=== PATIENT | female | born 1925 | race Caucasian/White ===

== ENCOUNTER 2016-06-23 10:44 | Emergency (ER) | payer OTHER, MEDICARE ==
[~2016-06-23] VITALS: Ht 167.6 cm; Wt 56.4 kg
[2016-06-23 10:55] VITALS: TEMP 36.9; Ht 167.6 cm; Wt 56.4 kg
[2016-06-23] MEDS ORDERED: HALOPERIDOL LACTATE 5 MG/ML 1 ML VIAL IV STA (11:33)
[2016-06-23] MEDS ORDERED: SODIUM CHLORIDE 0.9% 500ML 500 ML IV STA (11:33)
[2016-06-23] MEDS ORDERED: LORAZEPAM 2 MG/ML 1 ML VIAL IV STA (11:33)
--- NOTE | 2016-06-23 11:39 | EMERGENCY ROOM VISIT NOTE ---
History Report prepared by Ahmet: Katina Suárez Under the Supervision of: Dr. Jeremiah Reyez M.D. First contact with patient: 11:14 Chief Complaint: MENTAL HEALTH EVALUATION Stated Complaint: MEDICAL CLEARANCE History of Present Illness The patient is an 89 year old female who presents to the Emergency Room with complaints of a change in mental status that occurred prior to arrival. Per the patient's son, the patient was placed at [facility] this week and had a change in mental status. The patient has no history of mental health problems in the past. Per staff, the patient refused the initial exam from Dr. Ji at [facility]. Staff notes that the patent refused blood work blood pressure readings. The staff states that the communication was not relayed well to the patient. They state that the patient has not seen a doctor in over forty years. The patient's son states that the patient has a history of a double mastectomy. The patient states that she is unsure why she is here today and states that she would like this to move as quickly as possible. She states that her is very sick and she does not like being away from him for too long. Source of History: patient, family (son), other (staff) Onset: prior to arrival Position: other (global) Quality: other (change in mental status) Review of Systems See HPI for pertinent positives & negatives. A total of 10 systems reviewed and were otherwise negative. Past Medical & Surgical Surgical Problems: (1) H/O total mastectomy Family History Noncontributory secondary to age Social History Smoking Status: Never Smoker Marital Status: Housing Status: [facility] Occupation Status: retired Current/Historical Medications Scheduled Sulfa/Trimethoprim (Bactrim Ds 800MG/160MG), 1 TAB PO BID Allergies Uncoded Allergies: COUGH SYRUP (Allergy, Unknown, FAINTING, 09/16/13) Physical Exam Vital Signs Date Time Temp Pulse Resp B/P Pulse Ox O2 Delivery O2 Flow Rate FiO2 06/23/16 15:38 58 18 144/68 96 06/23/16 15:17 54 18 140/68 94 Room Air 06/23/16 14:41 129/54 06/23/16 13:12 125/73 06/23/16 10:55 36.9 56 18 117/73 94 Room Air Physical Exam GENERAL: Patient appears slightly confused. HEAD: Normocephalic atraumatic EYES: Ocular movements intact pupils equal and react to light OROPHARYNX mucous membranes are moist no exudates present no erythema or edema present NECK: Supple no nuchal rigidity CHEST: Good equal expansion LUNGS: Clear and equal to auscultation CARDIAC: Normal S1 and S2 ABDOMEN: Soft nontender no guarding BACK: No CVA tenderness EXTREMITIES: No pain upon palpation normal muscle strength in all groups no clubbing cyanosis or edema NEURO: Patient is following commands is answering questions appropriately. Alert and oriented x3 Cranial Nerves 2-12 grossly intact Medical Decision & Procedures ER Provider Diagnostic Interpretation: Radiology results as stated below per my review and radiologist interpretation: CT HEAD WITHOUT CONTRAST (CT) CLINICAL HISTORY: Acute change in mental status COMPARISON STUDY: No previous studies for comparison. TECHNIQUE: Axial CT of the brain is performed from the vertex to the skull base. IV contrast was not administered for this examination. CT DOSE: 638.56 mGycm FINDINGS: No intra or extra-axial mass lesions are visualized. There is no CT evidence of acute cortical infarction. There is no evidence of midline shift. There is no acute hemorrhage. No calvarial fractures are visualized. There are patchy white matter hypodensities likely on a small vessel basis. There are tiny lacunar infarcts within the basal ganglia bilaterally. There is no evidence of pathologic ventricular dilatation. There is no evidence of acute sinusitis. There is ossification of the falx. IMPRESSION: No acute intracranial findings Electronically signed by: Rigoberto Coreas M.D. 06/23/2016 12:17 PM Dictated Date/Time: 06/23/2016 12:16 PM CHEST ONE VIEW PORTABLE CLINICAL HISTORY: Acute change in mental status COMPARISON STUDY: 08/04/2015 FINDINGS: The heart is mildly enlarged. There are bilateral calcified breast implants. There is mild interstitial edema. There is no lobar consolidation. There are no pleural effusions. Surgical clips project over the right axillary region and both breasts. There is gaseous distention of the visualized bowel.[ IMPRESSION: Interval development of mild interstitial edema. No evidence of lobar consolidation Electronically signed by: Rigoberto Coreas M.D. 06/23/2016 11:57 AM Dictated Date/Time: 06/23/2016 11:56 AM Laboratory Results 06/23/16 12:00 Red Blood Count 4.52, Mean Corpuscular Volume 90.3, Mean Corpuscular Hemoglobin 30.1, Mean Corpuscular Hemoglobin Concent 33.3, Mean Platelet Volume 10.9, Neutrophils (%) (Auto) 73.2, Lymphocytes (%) (Auto) 17.3, Monocytes (%) (Auto) 7.2, Eosinophils (%) (Auto) 1.6, Basophils (%) (Auto) 0.4, Neutrophils # (Auto) 5.19, Lymphocytes # (Auto) 1.23, Monocytes # (Auto) 0.51, Eosinophils # (Auto) 0.11, Basophils # (Auto) 0.03 06/23/16 12:00 Test 06/23/16 12:00 06/23/16 12:04 06/23/16 13:30 White Blood Count 7.09 K/uL (4.8-10.8) Red Blood Count 4.52 M/uL (4.2-5.4) Hemoglobin 13.6 g/dL (12.0-16.0) Hematocrit 40.8 % (37-47) Mean Corpuscular Volume 90.3 fL (80-100) Mean Corpuscular Hemoglobin 30.1 pg (25-34) Mean Corpuscular Hemoglobin Concent 33.3 g/dl (32-36) Platelet Count 220 K/uL (130-400) Mean Platelet Volume 10.9 fL (7.4-10.4) Neutrophils (%) (Auto) 73.2 % Lymphocytes (%) (Auto) 17.3 % Monocytes (%) (Auto) 7.2 % Eosinophils (%) (Auto) 1.6 % Basophils (%) (Auto) 0.4 % Neutrophils # (Auto) 5.19 K/uL (1.4-6.5) Lymphocytes # (Auto) 1.23 K/uL (1.2-3.4) Monocytes # (Auto) 0.51 K/uL (0.11-0.59) Eosinophils # (Auto) 0.11 K/uL (0-0.5) Basophils # (Auto) 0.03 K/uL (0-0.2) RDW Standard Deviation 47.0 fL (36.4-46.3) RDW Coefficient of Variation 14.1 % (11.5-14.5) Immature Granulocyte % (Auto) 0.3 % Immature Granulocyte # (Auto) 0.02 K/uL (0.00-0.02) Anion Gap 8.0 mmol/L (3-11) Est Creatinine Clear Calc Drug Dose 34.0 ml/min Estimated GFR () 57.8 Estimated GFR (Non- 49.9 BUN/Creatinine Ratio 20.9 (10-20) Calcium Level 9.4 mg/dl (8.5-10.1) Total Bilirubin 0.6 mg/dl (0.2-1) Direct Bilirubin 0.1 mg/dl (0-0.2) Aspartate Amino Transf (AST/SGOT) 29 U/L (15-37) Alanine Aminotransferase (ALT/SGPT) 30 U/L (12-78) Alkaline Phosphatase 94 U/L (45-117) Total Creatine Kinase 272 U/L (26-192) Creatine Kinase MB 9.7 ng/ml (0.5-3.6) Creatine Kinase MB Ratio 3.6 (0-3.0) Troponin I < 0.015 ng/ml (0-0.045) Total Protein 7.9 gm/dl (6.4-8.2) Albumin 3.8 gm/dl (3.4-5.0) Thyroid Stimulating Hormone (TSH) 21.900 uIu/ml (0.300-4.500) Bedside Glucose 77 mg/dl (70-90) Urine Color YELLOW Urine Appearance CLOUDY (CLEAR) Urine pH 6.0 (4.5-7.5) Urine Specific Hilger 1.017 (1.000-1.030) Urine Protein NEG (NEG) Urine Glucose (UA) NEG (NEG) Urine Ketones TRACE (NEG) Urine Occult Blood 1+ (NEG) Urine Nitrite POS (NEG) Urine Bilirubin NEG (NEG) Urine Urobilinogen NEG (NEG) Urine Leukocyte Esterase MODERATE (NEG) Urine WBC (Auto) 10-30 /hpf (0-5) Urine RBC (Auto) 0-4 /hpf (0-4) Urine Hyaline Casts (Auto) 1-5 /lpf (0-5) Urine Epithelial Cells (Auto) 5-10 /lpf (0-5) Urine Bacteria (Auto) 4+ (NEG) Labs reviewed by ED physician. Medications Administered Medications (Trade) Dose Ordered Sig/Mary Ann Route Start Time Stop Time Status Last Admin Dose Admin Sodium Chloride (Nss 500ml) 500 ml @ 999 mls/hr Q31M STAT IV 06/23/16 11:33 06/23/16 12:03 DC 06/23/16 11:33 999 MLS/HR Ceftriaxone Sodium (Rocephin Inj) 1 gm NOW STAT IV 06/23/16 14:16 06/23/16 14:17 DC 06/23/16 14:42 1 GM ECG Indication: altered mental status Rate (beats per minute): 58 Rhythm: sinus bradycardia Findings: no acute ischemic change, no ectopy ED Course 1120: Past medical records reviewed. The patient was evaluated in room A8. A complete history and physical examination was performed. 1133: Ordered Sodium Chloride 500 ml @ 999 mls/hr IV, Ativan Inj 1 mg IV, Haldol Inj 5 mg IV. 1308: I reevaluated the patient and she is resting comfortably. Medical Decision Differential diagnosis: Etiologies such as metabolic, infection, hypo/hyperglycemia, electrolyte abnormalities, cardiac sources, intracerebral event, toxicologic, neurologic, as well as others were entertained. This is an 89-year-old female sent in from her [facility] of the fact that the patient would not submit to a medical clearance examination at her [facility]. The patient denies being suicidal homicidal she wishes to get back so that she can take care of her . The patient had been anxious and not cooperating with staff at the [facility] therefore she was sent in for evaluation. CAT scan of the head does not show any acute process, the patient has normal chest x-ray, she has a normal CBC normal renal profile. Appear that the patient may have a urinary tract infection so she was given Rocephin in the emergency department and started on Bactrim pending laboratory results. Patient family were in agreement with the treatment plan to be sent back to the [facility] Scribe Attestation The scribe's documentation has been prepared under my direction and personally reviewed by me in its entirety. I confirm that the note above accurately reflects all work, treatment, procedures, and medical decision making performed by me. Departure Information Dispostion Re[facility] Inpatient Facility Prescriptions Sulfa/Trimethoprim (Bactrim Ds 800MG/160MG) Tab 1 TAB PO BID for 10 Days, #20 TAB Prov: Jeremiah Reyez MD 06/23/16 Referrals No Doctor, Assigned (PCP) Patient Instructions My [facility]
--- NOTE | 2016-06-23 11:59 | DIAGNOSTIC IMAGING REPORT ---
CHEST ONE VIEW PORTABLE CLINICAL HISTORY: Acute change in mental status COMPARISON STUDY: 08/04/2015 FINDINGS: The heart is mildly enlarged. There are bilateral calcified breast implants. There is mild interstitial edema. There is no lobar consolidation. There are no pleural effusions. Surgical clips project over the right axillary region and both breasts. There is gaseous distention of the visualized bowel.[ IMPRESSION: Interval development of mild interstitial edema. No evidence of lobar consolidation Electronically signed by: Rigoberto Coreas M.D. 06/23/2016 11:57 AM Dictated Date/Time: 06/23/2016 11:56 AM
[2016-06-23 12:09] LABS: BASO % 0.4 %; BASO ABS # 0.03 K/uL (0-0.2); COMPLETE YES; EOS % 1.6 %; HEMATOCRIT 40.8 % (37-47); IG% 0.3 %; LYMPH % 17.3 %; LYMPH ABS # 1.23 K/uL (1.2-3.4); MEAN CELL VOLUME 90.3 fL (80-100); MEAN CORPUSCULAR HEMOGLOBIN 30.1 pg (25-34); MEAN CORPUSCULAR HGB CONC 33.3 g/dl (32-36); MEAN PLATELET VOLUME 10.9 fL (7.4-10.4); MONO % 7.2 %; NEUT % 73.2 %; PLATELET COUNT 220 K/uL (130-400); RED BLOOD COUNT 4.52 M/uL (4.2-5.4); WHITE BLOOD COUNT 7.09 K/uL (4.8-10.8)
--- NOTE | 2016-06-23 12:18 | DIAGNOSTIC IMAGING REPORT ---
CT HEAD WITHOUT CONTRAST (CT) CLINICAL HISTORY: Acute change in mental status COMPARISON STUDY: No previous studies for comparison. TECHNIQUE: Axial CT of the brain is performed from the vertex to the skull base. IV contrast was not administered for this examination. CT DOSE: 638.56 mGycm FINDINGS: No intra or extra-axial mass lesions are visualized. There is no CT evidence of acute cortical infarction. There is no evidence of midline shift. There is no acute hemorrhage. No calvarial fractures are visualized. There are patchy white matter hypodensities likely on a small vessel basis. There are tiny lacunar infarcts within the basal ganglia bilaterally. There is no evidence of pathologic ventricular dilatation. There is no evidence of acute sinusitis. There is ossification of the falx. IMPRESSION: No acute intracranial findings Electronically signed by: Rigoberto Coreas M.D. 06/23/2016 12:17 PM Dictated Date/Time: 06/23/2016 12:16 PM
[2016-06-23 12:29] LABS: ALT/SGPT 30 U/L (12-78); BLOOD UREA NITROGEN 21 mg/dl (7-18); BUN/CREATININE RATIO 20.9 (10-20); CALCIUM 9.4 mg/dl (8.5-10.1); CARBON DIOXIDE 26 mmol/L (21-32); CHLORIDE 103 mmol/L (98-107); GLUCOSE 85 mg/dl (70-99); SODIUM 137 mmol/L (136-145)
[2016-06-23 12:40] LABS: ALKALINE PHOSPHATASE 94 U/L (45-117); AST/SGOT 29 U/L (15-37); CKMB/CK RATIO 3.6 (0-3.0)
[2016-06-23 14:07] LABS: URINE APPEARANCE CLOUDY (CLEAR); URINE BILIRUBIN NEG (NEG); URINE COLOR YELLOW; URINE NITRITE POS (NEG); URINE SPECIFIC GRAVITY 1.017 (1.000-1.030); UROBILINOGEN NEG (NEG)
[2016-06-23 14:14] LABS: MANUAL MICROSCOPIC REQUIRED? NO; REVIEW REQ? NO
[2016-06-23] MEDS ORDERED: CEFTRIAXONE SOD INJ 1 GM ADDVIAL IV STA (14:16)
[2016-06-23] MEDS ORDERED: SULF800T23 PO (14:23)
[2016-06-23 15:38] VITALS: BP 144/68; PULSE 58; O2SAT 96
== END 2016-06-23 15:40 | disposition home or self-care (01) ==
LOC: C.EDB 10:45 → C.EDA 15:40
DX: R41.82 Altered mental status, unspecified (principal); Z90.10 Acquired absence of unspecified breast and nipple

== ENCOUNTER → 2016-11-07 | Outpatient (CLI) | payer OTHER, MEDICARE | END | disposition home or self-care (01) | LOC: C.LABWYN 08:24 | PROVIDERS: ATTEND Internal Medicine | DX: E03.9 Hypothyroidism, unspecified (principal) ==

== ENCOUNTER → 2016-12-28 | Outpatient (CLI) | payer OTHER, MEDICARE | END | disposition home or self-care (01) | LOC: C.LABWYN 07:59 | PROVIDERS: ATTEND Internal Medicine | DX: E03.9 Hypothyroidism, unspecified (principal); F03.90 Unspecified dementia, unspecified severity, without behavioral disturbance, psychotic disturbance, mood disturbance, and anxiety; N39.0 Urinary tract infection, site not specified ==

== ENCOUNTER → 2017-01-04 | Outpatient (CLI) | payer OTHER, MEDICARE | END | disposition home or self-care (01) | LOC: C.LABWYN 07:59 | PROVIDERS: ATTEND Internal Medicine | DX: E03.9 Hypothyroidism, unspecified (principal) ==

== ENCOUNTER → 2017-02-15 | Outpatient (CLI) | payer OTHER, MEDICARE ==
--- NOTE | 2017-02-23 10:44 | CODING QUERY NO DIAGNOSIS ---
TREATMENT RENDERED WITHOUT A DIAGNOSIS To promote full compliance with coding requirements relating to patient care, physician participation is requested in all cases of mill control operator uncertainty. Please assist us with providing a diagnosis/symptom for the test(s) below: A diagnosis/symptom was not documented on your Order. A valid diagnosis/symptom is required to bill all insurances. Please remember that we are unable to code a diagnosis of rule out, probable, possible, questionable, or suspected. Tests that require a diagnosis: * TSH DIAGNOSIS: Provider Signature: Date: Thank you Lien Charles [employer] Information Management Once completed, please kindly fax back to [phone] For questions please call [phone]
== END | disposition home or self-care (01) ==
LOC: C.LABWYN 08:34
PROVIDERS: ATTEND Internal Medicine
DX: E03.9 Hypothyroidism, unspecified (principal)

== ENCOUNTER → 2017-03-05 | Outpatient (CLI) | payer OTHER, MEDICARE ==
[2017-03-06 09:26] LABS: URINE APPEARANCE CLEAR (CLEAR); URINE BILIRUBIN NEG (NEG); URINE COLOR YELLOW; URINE NITRITE NEG (NEG); URINE SPECIFIC GRAVITY 1.019 (1.000-1.030); UROBILINOGEN NEG (NEG)
[2017-03-06 09:28] LABS: MANUAL MICROSCOPIC REQUIRED? NO; REVIEW REQ? NO
== END | disposition home or self-care (01) ==
LOC: C.LABWYN 08:56
PROVIDERS: ATTEND Internal Medicine
DX: R35.0 Frequency of micturition (principal); R39.15 Urgency of urination

== ENCOUNTER → 2017-03-29 | Outpatient (CLI) | payer OTHER, MEDICARE ==
--- NOTE | 2017-04-02 15:12 | CODING QUERY NO DIAGNOSIS ---
TREATMENT RENDERED WITHOUT A DIAGNOSIS To promote full compliance with coding requirements relating to patient care, physician participation is requested in all cases of data collection interviewer uncertainty. Please assist us with providing a diagnosis/symptom for the test(s) below: A diagnosis/symptom was not documented on your Order. A valid diagnosis/symptom is required to bill all insurances. Please remember that we are unable to code a diagnosis of rule out, probable, possible, questionable, or suspected. Tests that require a diagnosis: * TSH DIAGNOSIS: Provider Signature: Date: Thank you Lien Charles [employer] Information Management Once completed, please kindly fax back to [phone] For questions please call [phone]
== END | disposition home or self-care (01) ==
LOC: C.LABWYN 08:06
PROVIDERS: ATTEND Internal Medicine
DX: E03.9 Hypothyroidism, unspecified (principal)